=== PATIENT | female | born 1945 | race Caucasian/White ===

== ENCOUNTER 2016-09-26 07:03 | Day surgery (SDC) | payer MEDICARE ==
[~2016-09-26 07:03] MED LIST: ALEVE220 M4 PO; AMARYL1 M1; AMARYL4 M1 PO; AMLODIPINE BESYL5 MG PO; AMLODIPINE BESYLATE PO; ARIMIDEX1 M1 PO; AZOR 10-20 MG1 EACH; COREG3.125 M1 PO; FARXIGA PO; FARXIGA5 M1; FARXIGA5 M1 PO; FENOFIBRATE PO; FENOFIBRATE145 M2 PO; FENOFIBRATE40 MG; GLIMEPIRIDE PO; GLUCOPHAGE1000 M1 PO; GLUCOSAMINE CH1 EAC6 PO; JANUVIA PO; JANUVIA100 M1 PO; JANUVIA25 M1; LEVEMIR100 UNITS/ SC; MAGNESIUM MALATE PO; NOVOLOG100 UNITS/ SC; PRILOSEC OTC20 M1 PO; TRULICITY0.75 MG/0. SC; VITAMIN A PO; VITAMIN A10000 UNI2 PO; VITAMIN B PO; VITAMIN D3 PO; VITAMIN D35000 UNI3 PO; ZETIA PO; ZETIA10 M1 PO; [UNRECOGNIZED DRUG - CODE]; [UNRECOGNIZED DRUG - CODE] SL
[2016-09-26 07:51] LABS: BASO % 0.8 % (0-2); BASO ABSOLUTE COUNT 0.1 tho/cmm (0.0-0.2); EOS % 4.2 % (0-7); EOSINOPHIL ABSOLUTE COUNT 0.3 tho/cmm (0.0-0.7); HCT-HEMATOCRIT 36.8 % (34.0-49.0); HGB-HEMOGLOBIN 12.5 gm/dl (12.0-15.5); IMMATURE GRANULOCYTES ABSOLUTE 0.01 tho/cmm (0-0.03); IMMATURE GRANULOCYTES PERCENT 0.1 % (0-0.3); LYMPH % 35.6 % (20-45); LYMPH ABSOLUTE COUNT 2.6 tho/cmm (0.8-4.5); MCH (MEAN CORPUSCULAR HGB) 30.7 pg (28.0-32.0); MCV (MEAN CELL VOLUME) 90.4 fl (82.0-96.0); MEAN PLATELET VOLUME 8.5 cmc (9.4-12.4); MONO % 8.8 % (0-12); MONOCYTE ABSOLUTE COUNT 0.6 tho/cmm (0.0-1.2); NEUTROPHIL ABSOLUTE COUNT 3.6 tho/cmm (1.6-8.0); NEUTROPHIL-AUTOMATED 3.6 tho/cmm (1.6-8.0); NEUTROPHILS % 50.5 % (40-80); PLATELET COUNT 354 tho/cmm (150-450); RED BLOOD COUNT 4.07 mil/cmm (4.00-5.20); RED CELL DISTRIBUTION WIDTH 13.6 % (12.4-16.4); WHITE BLOOD COUNT 7.2 tho/cmm (4.0-10.0)
[2016-09-26 07:55] LABS: INR 0.9 INR (0.9-1.1); PROTHROMBIN TIME 10.1 SECONDS (9.0-13.6)
== END 2016-09-26 12:05 ==
LOC: RADSP 07:03 → SHSC 07:08
PROVIDERS: Radiology Diagnostic Radiology
PROC: 0JPT0XZ Removal of Tunneled Vascular Access Device from Trunk Subcutaneous Tissue and Fascia, Open Approach (ICD-10-PCS; principal; 2016-09-26)
DX: Z85.3 Personal history of malignant neoplasm of breast (principal); Z88.8 Allergy status to other drugs, medicaments and biological substances; Z79.4 Long term (current) use of insulin; Z79.899 Other long term (current) drug therapy
CPT/HCPCS: J0690; J2250; J3010; J7030